=== PATIENT | male | born 1955 | race Caucasian/White ===

== ENCOUNTER 2020-12-02 13:58 | Emergency (ER) | payer MEDICARE, SELFPAY ==
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
[2020-12-02 14:11] VITALS: BP 124/71; PULSE 96; RESP 12; TEMP 36.3; O2SAT 99
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
== END 2020-12-02 15:15 | disposition home or self-care (01) ==
PROVIDERS: Emergency Provider Nurse Practitioner; PCP Family Medicine Adolescent Medicine
DX: M25.531 Pain in right wrist (principal); Z96.641 Presence of right artificial hip joint
CPT/HCPCS: 73110; 99213; G0463

== ENCOUNTER 2022-10-27 10:47 | Outpatient (CLI) | payer MEDICARE, SELFPAY ==
--- NOTE | ~2022-10-27 | XR_ITS ---
Cervical Spine: AP, lateral, open-mouth views Clinical History: Pain Findings: No acute fracture identified. 3 mm anterolisthesis of C2 over C3 present. 2-3 mm retrolisth esis of C3 over C4 present. 2 mm retrolisthesis of C4 over C5 present. There is severe degenerative d isc narrowing at C3-C4 and C6-C7. Possible fusion across the C6-C7 disc space. There is moderate to a dvanced degenerative disc change at C4-C5. Pre-vertebral soft tissues are unremarkable. Impression: 3 mm anterolisthesis of C2 over C3. 2-3 mm retrolisthesis of C3 over C4, and of C4 over C5. Advanced degenerative disc narrowing at multiple levels in the cervical spine, as detailed above. Reviewed, dictated and finalized at [facility]. Impression: 3 mm anterolisthesis of C2 over C3. 2-3 mm retrolisthesis of C3 over C4, and of C4 over C5. Advanced degenerative disc narrowing at multiple levels in the cervical spine, as detailed above.
[2022-10-27 11:25] LABS: Hematocrit 44.1 % (42.0-52.0); Hemoglobin 14.8 g/dL (14.0-18.0); Mean Corpuscular HGB Conc 33.6 g/dl (32-36); Mean Corpuscular Hemoglobin 30.9 pg (26-34); Mean Corpuscular Volume 92.1 fl (80-100); Mean Platelet Volume 9.1 fl (7.4-10.4); Platelet Count Result 223 k/mm3 (150-375); Red Blood Count 4.79 M/mm3 (4.6-6.20); Red Cell Distribution Width 12.6 % (11.5-14.5); White Blood Count 6.4 K/mm3 (4.5-10.0)
[2022-10-27 11:39] LABS: Rheumatoid Factor < 12.0 IU/ML (<12)
[2022-10-27 11:40] LABS: Alanine Aminotransferase 22 U/L (6-50); Albumin Level 4.3 g/dL (3.5-5.1); Alkaline Phosphatase 86 U/L (38-126); Anion Gap 3 mmol/L (8-16); Aspartate Amino Transferase 29 U/L (17-59); Bilirubin,Total 0.9 mg/dL (0.2-1.3); Blood Urea Nitrogen 21 mg/dL (9-20); CRP 0.5 mg/dL (<1.0); Calcium 8.7 mg/dL (8.4-10.2); Carbon Dioxide 32 mmol/L (22-30); Chloride 102 mmol/L (98-107); Estimated Glomerular Filt Rate > 60; Glucose 97 mg/dL (65-110); Potassium 4.7 mmol/L (3.4-5.0); Sodium 137 mmol/L (137-145)
[2022-10-27 11:55] LABS: Erythrocyte Sedimentation Rate 12 mm/hr (0-20)
== END 2022-10-27 10:48 | disposition home or self-care (01) ==
PROVIDERS: PCP Family Medicine Adolescent Medicine; Visit Provider Nurse Practitioner Family
DX: M43.12 Spondylolisthesis, cervical region (principal); M48.02 Spinal stenosis, cervical region; M25.511 Pain in right shoulder; M25.512 Pain in left shoulder; R63.4 Abnormal weight loss
CPT/HCPCS: 36415; 72040; 80053; 84443; 85025; 85652; 86140; 86430